=== PATIENT | male | born 1960 | race Caucasian/White ===

== ENCOUNTER → 2017-12-09 | Outpatient (CLI) | payer BC ==
[~2017-12-09] MED LIST: ADVIL200 MG PO; GLUCOSAMINE1000 MG PO
== END | disposition home or self-care (01) ==
LOC: CDC 15:33
DX: Z01.810 Encounter for preprocedural cardiovascular examination (principal); K40.90 Unilateral inguinal hernia, without obstruction or gangrene, not specified as recurrent; R94.31 Abnormal electrocardiogram [ECG] [EKG]
CPT/HCPCS: 93000

== ENCOUNTER 2017-12-15 09:31 | Day surgery (SDC) | payer BC ==
[~2017-12-15] VITALS: Ht 175.3 cm; Wt 66.3 kg
[2017-12-15 10:02] VITALS: BP 118/62
[2017-12-15 11:45] VITALS: BP 110/58
[2017-12-15] MEDS ORDERED: NORCO 5/3251 TABLET PO (12:53)
[2017-12-15 13:57] VITALS: BP 105/65
[2017-12-15 16:50] VITALS: BP 115/71
[2017-12-15 17:50] VITALS: BP 105/69
== END 2017-12-15 18:00 | disposition home or self-care (01) ==
LOC: SDC 09:31
PROC: 0YU50JZ Supplement Right Inguinal Region with Synthetic Substitute, Open Approach (ICD-10-PCS; principal; 2017-12-15)
DX: K40.90 Unilateral inguinal hernia, without obstruction or gangrene, not specified as recurrent (principal); D17.6 Benign lipomatous neoplasm of spermatic cord; R94.31 Abnormal electrocardiogram [ECG] [EKG]
CPT/HCPCS: C1781; J0131; J0690; J1100; J1170; J2250; J2405; J2710; J3010; J7643; S0020